=== PATIENT | female | born 1935 | race Caucasian/White ===

== ENCOUNTER → 2016-12-10 | Outpatient (CLI) | payer MEDICARE ==
[~2016-12-10] MED LIST: ALEN70TA5 PO; ASPI-650 PO; CALC1TAB PO; CITA10TA8 PO; DOCU-30 PO; GABA-826 PO; HYDR-3138 PO; MELO-184 PO; MULT-516 PO; NAPR500T3 PO; OMEP-110 PO; OXYB5TAB7 PO; SENN8.6T4 PO; TRAM50TA2 PO; VISION PO
[2016-12-10 14:25] LABS: ASPARTATE AMINO TRANSFERASE 22 U/L (15-37); BLOOD UREA NITROGEN 15 mg/dL (7-18)
== END | disposition home or self-care (01) ==
LOC: CLISVCS 12:43
PROVIDERS: ATTEND Orthopaedic Surgery
DX: T84.84XD Pain due to internal orthopedic prosthetic devices, implants and grafts, subsequent encounter (principal); X58.XXXD Exposure to other specified factors, subsequent encounter; Z96.641 Presence of right artificial hip joint
CPT/HCPCS: 36415; 80053; 81003; 85025; 87081; 87147

== ENCOUNTER 2016-12-11 08:03 | Day surgery (SDC) | payer MEDICARE ==
[~2016-12-11] VITALS: Ht 152.4 cm; Wt 55.3 kg
[2016-12-11] MEDS ORDERED: LACTATED RINGERS 1,000 ML IV SCH (08:37)
[2016-12-11 08:38] VITALS: BP 153/74
[2016-12-11] MEDS ORDERED: LIDOCAINE 1%, 2ML SQ PRN (09:00)
[2016-12-11] MEDS ORDERED: MIDAZOLAM 1 MG/ML, 2ML ONE (10:38)
[2016-12-11] MEDS ORDERED: PROPOFOL 10 MG/ML, 20ML ONE (10:46)
[2016-12-11] MEDS ORDERED: PROMETHAZINE 25 MG/ML, 1ML IM PRN (11:00)
[2016-12-11] MEDS ORDERED: HYDROcodone/APAP 7.5-325MG/15ML UDC PO PRN (11:30)
[2016-12-11] MEDS ORDERED: EPHEDRINE 50 MG/ML, 1ML IVPush PRN (11:30)
[2016-12-11] MEDS ORDERED: ONDANSETRON 2MG/ML, 2ML IVPush PRN (11:30)
[2016-12-11] MEDS ORDERED: hydrALAzine 20 MG/ML, 1ML IV PRN (11:30)
[2016-12-11] MEDS ORDERED: OXYcodone 5 MG/5 ML ORAL.SOL UDC PO PRN (11:30)
[2016-12-11] MEDS ORDERED: LABETALOL 5MG/ML, 20ML IV PRN (11:30)
[2016-12-11] MEDS ORDERED: FENTANYL PF 100 MCG/2ML IV PRN (11:30)
[2016-12-11] MEDS ORDERED: PROMETHAZINE 25 MG/ML, 1ML IV PRN (11:30)
[2016-12-11] MEDS ORDERED: METOPROLOL 1 MG/ML, 5ML IV PRN (11:30)
[2016-12-11] MEDS ORDERED: ALBUTEROL SULFATE 2.5 MG/3 ML NPPB PRN (11:30)
[2016-12-11] MEDS ORDERED: ACETAMINOPHEN 325 MG TABLET PO PRN (11:30)
[2016-12-11 11:33] LABS: CELLS COUNTED 11; DILUTION 20; WBC SQUARES COUNTED 9
== END 2016-12-11 12:55 | disposition home or self-care (01) ==
LOC: OUT 08:03
PROVIDERS: ATTEND Orthopaedic Surgery
DX: T84.498A Other mechanical complication of other internal orthopedic devices, implants and grafts, initial encounter (principal); Y83.1 Surgical operation with implant of artificial internal device as the cause of abnormal reaction of the patient, or of later complication, without mention of misadventure at the time of the procedure; K21.9 Gastro-esophageal reflux disease without esophagitis; M19.90 Unspecified osteoarthritis, unspecified site; Z88.6 Allergy status to analgesic agent; G89.29 Other chronic pain; M54.9 Dorsalgia, unspecified; Z96.641 Presence of right artificial hip joint
CPT/HCPCS: 20610; 73501; 89051; 93005; J2250; J2704; J7120; 76000; 77002

== ENCOUNTER 2016-12-14 09:03 | Inpatient (IN) | payer MEDICARE ==
[2016-12-10 13:49] VITALS: BP 128/86
[~2016-12-14] VITALS: Ht 152.4 cm; Wt 65.2 kg
[~2016-12-14 09:03] MED LIST changes: +BUPIVACAINE/PF 0.25% ONE; +BUPIVACAINE/PF 0.5% ONE; +methylPREDNISolone *ACETATE* 40 MG/ML ONE
[2016-12-14] MEDS ORDERED: TRANEXAMIC ACID 100 MG/ML, 10ML ONE (11:00)
[2016-12-14] MEDS ORDERED: KETOROLAC 60 MG/2 ML ONE (11:00)
[2016-12-14] MEDS ORDERED: VANCOMYCIN 1,000 MG ONE ×2 (11:00→11:46)
[2016-12-14] MEDS ORDERED: ROPIvacaine/PF 0.2%, 20 ML ONE (11:00)
[2016-12-14] MEDS ORDERED: EPINEPHRINE 1 MG/ML, 1ML ONE (11:00)
[2016-12-14] MEDS ORDERED: SODIUM CHLORIDE 0.9% 50 ML ONE (11:01)
[2016-12-14] MEDS ORDERED: LACTATED RINGERS 1,000 ML IV SCH (11:02)
[2016-12-14] MEDS ORDERED: FENTANYL PF 250 MCG/5ML ONE (11:19)
[2016-12-14] MEDS ORDERED: DEXAMETHASONE 4 MG/ML, 1ML ONE (11:49)
[2016-12-14] MEDS ORDERED: CEFAZOLIN 1,000 MG ONE ×2 (11:49)
[2016-12-14] MEDS ORDERED: PROPOFOL 10 MG/ML, 20ML ONE (11:49)
[2016-12-14] MEDS ORDERED: ONDANSETRON 2MG/ML, 2ML ONE ×2 (11:49→16:29)
[2016-12-14] MEDS ORDERED: ROCURONIUM 10 MG/ML ONE (11:49)
[2016-12-14] MEDS ORDERED: PHENYLEPHRINE 10 MG/ML ONE (11:49)
[2016-12-14] MEDS ORDERED: ALBUTEROL SULFATE 2.5 MG/3 ML NPPB PRN (13:00)
[2016-12-14] MEDS ORDERED: hydrALAzine 20 MG/ML, 1ML IV PRN (13:00)
[2016-12-14] MEDS ORDERED: METOPROLOL 1 MG/ML, 5ML IV PRN (13:00)
[2016-12-14] MEDS ORDERED: HALOPERIDOL 5 MG/ML IV ONE (13:00)
[2016-12-14] MEDS ORDERED: ACETAMINOPHEN 325 MG TABLET PO PRN (13:00)
[2016-12-14] MEDS ORDERED: OXYcodone 5 MG/5 ML ORAL.SOL UDC PO PRN (13:00)
[2016-12-14] MEDS ORDERED: KETAMINE 10 MG/ML, 20ML ONE (14:32)
[2016-12-14] MEDS ORDERED: FENTANYL PF 100 MCG/2ML ONE (16:13)
[2016-12-14] MEDS ORDERED: OXYcodone 5 MG/5 ML ORAL.SOL UDC ONE (16:13)
[2016-12-14] MEDS ORDERED: HYDROmorphone 2 MG/ML, 1ML ONE (16:13)
[2016-12-14] MEDS ORDERED: ACETAMINOPHEN 650 MG/20.3 ML UDC ONE (16:13)
[2016-12-14] MEDS: FENTANYL PF 100 MCG/2ML IV PRN ×4 (16:20→17:19)
[2016-12-14] MEDS: HYDROmorphone 1 MG/ML, 1ML IV PRN ×4 (16:26→17:30)
[2016-12-14] MEDS ORDERED: OXYcodone IR 5MG TABLET PO PRN (16:30)
[2016-12-14] MEDS ORDERED: ONDANSETRON 4 MG TABLET PO PRN (16:30)
[2016-12-14] MEDS: HYDROcodone/APAP 10/325 MG TABLET PO SCH ×2 (16:30→20:41)
[2016-12-14] MEDS ORDERED: HYDROmorphone 1 MG/ML, 1ML IV PRN (16:30)
[2016-12-14] MEDS ORDERED: ALUMINUM/MAG/SIMETHICONE 30 ML UDC PO PRN (16:30)
[2016-12-14] MEDS ORDERED: SENNA/DOCUSATE TABLET PO PRN (16:30)
[2016-12-14] MEDS ORDERED: DIPHENHYDRAMINE 25 MG CAPSULE PO PRN (16:30)
[2016-12-14] MEDS ORDERED: TRANEXAMIC ACID 1,000 MG in SODIUM CHLORIDE 0.9% 100 ML IVPB ONE (16:30)
[2016-12-14] MEDS ORDERED: MAGNESIUM HYDROXIDE 8%, 30ML UDC PO PRN (16:30)
[2016-12-14] MEDS ORDERED: PROMETHAZINE 12.5 MG SUPP PR PRN (16:30)
[2016-12-14] MEDS ORDERED: DIAZEPAM 5 MG TABLET PO PRN (16:30)
[2016-12-14] MEDS ORDERED: ACETAMINOPHEN 650 MG/20.3 ML UDC PO PRN (16:30)
[2016-12-14] MEDS ORDERED: BISACODYL 10 MG SUPP PR PRN (16:30)
[2016-12-14] MEDS ORDERED: PROMETHAZINE 25 MG/ML, 1ML IM PRN (16:30)
[2016-12-14 17:20] LABS: BLOOD UREA NITROGEN 12 mg/dL (7-18)
[2016-12-14] MEDS ORDERED: [UNRECOGNIZED DRUG - REMARK] MC SCH (18:00)
[2016-12-14] MEDS: CEFAZOLIN PMX 2GM/50ML 50 ML IVPB SCH (20:26)
[2016-12-14] MEDS: D5%-0.45% NACL 1,000 ML IV SCH (20:26)
[2016-12-14] MEDS: ONDANSETRON 2MG/ML, 2ML IV PRN (20:27)
[2016-12-14] MEDS: DOCUSATE 100 MG CAPSULE PO SCH (20:41)
[2016-12-14] MEDS: OMEPRAZOLE 20 MG CAPSULE.DR PO SCH (20:41)
[2016-12-14 21:21] VITALS: BP 118/52
[2016-12-15 00:03] VITALS: BP 127/50
[2016-12-15] MEDS: HYDROcodone/APAP 10/325 MG TABLET PO SCH ×4 (00:42→14:00)
[2016-12-15] MEDS: CEFAZOLIN PMX 2GM/50ML 50 ML IVPB SCH (04:01)
[2016-12-15 04:14] VITALS: BP 100/41
[2016-12-15 04:39] VITALS: BP 111/52
[2016-12-15] MEDS: D5%-0.45% NACL 1,000 ML IV SCH ×3 (04:51→20:00)
[2016-12-15] MEDS ORDERED: DEXAMETHASONE 4 MG/ML, 1ML IVPush SCH (06:00)
[2016-12-15 06:14] LABS: BLOOD UREA NITROGEN 12 mg/dL (7-18)
[2016-12-15 07:58] VITALS: BP 99/48
[2016-12-15] MEDS ORDERED: MAGNESIUM SULFATE PMX 4GM/100M 100 ML IV ONE (09:30)
[2016-12-15] MEDS: OMEPRAZOLE 20 MG CAPSULE.DR PO SCH (09:43)
[2016-12-15] MEDS: DOCUSATE 100 MG CAPSULE PO SCH ×2 (09:43→22:45)
[2016-12-15] MEDS: RIVAROXABAN 10 MG TABLET PO SCH (09:44)
[2016-12-15] MEDS: MULTIVITAMINS/MINERALS TABLET PO SCH (09:44)
[2016-12-15] MEDS: CITALOPRAM 10 MG TABLET PO SCH (09:44)
[2016-12-15] MEDS ORDERED: VANCOMYCIN PMX 1GM/200ML 200 ML IVPB ONE (11:30)
[2016-12-15 14:22] VITALS: BP 119/71
[2016-12-15] MEDS: KETOROLAC 30 MG/1 ML IV SCH (16:11)
[2016-12-15] MEDS: HYDROcodone/APAP 10/325 MG TABLET PO PRN ×2 (18:09→22:47)
[2016-12-15 19:48] VITALS: BP 91/49
[2016-12-15] MEDS: ZOLPIDEM 5MG TABLET PO PRN (23:07)
[2016-12-16] VITALS (12 sets, daily range): BP systolic 97–128; BP diastolic 40–74
[2016-12-16] MEDS: KETOROLAC 30 MG/1 ML IV SCH ×2 (01:21→09:34)
[2016-12-16] MEDS: D5%-0.45% NACL 1,000 ML IV SCH ×3 (04:00→20:00)
[2016-12-16] MEDS: HYDROcodone/APAP 10/325 MG TABLET PO PRN ×2 (05:42→14:38)
[2016-12-16 05:46] LABS: BLOOD UREA NITROGEN 11 mg/dL (7-18)
[2016-12-16 05:49] LABS: ASPARTATE AMINO TRANSFERASE 36 U/L (15-37)
[2016-12-16] MEDS: RIVAROXABAN 10 MG TABLET PO SCH (09:00)
[2016-12-16] MEDS: MULTIVITAMINS/MINERALS TABLET PO SCH (09:34)
[2016-12-16] MEDS: OMEPRAZOLE 20 MG CAPSULE.DR PO SCH (09:37)
[2016-12-16] MEDS: DOCUSATE 100 MG CAPSULE PO SCH ×2 (09:38→22:54)
[2016-12-16] MEDS: CITALOPRAM 10 MG TABLET PO SCH (09:38)
[2016-12-16] MEDS: ZOLPIDEM 5MG TABLET PO PRN (23:14)
[2016-12-17 01:23] VITALS: BP 121/57
[2016-12-17] MEDS: D5%-0.45% NACL 1,000 ML IV SCH ×2 (03:59→12:00)
[2016-12-17] MEDS: HYDROcodone/APAP 10/325 MG TABLET PO PRN ×2 (05:25→21:19)
[2016-12-17 06:41] LABS: ASPARTATE AMINO TRANSFERASE 30 U/L (15-37); BLOOD UREA NITROGEN 12 mg/dL (7-18)
[2016-12-17] MEDS: CITALOPRAM 10 MG TABLET PO SCH (08:25)
[2016-12-17] MEDS: DOCUSATE 100 MG CAPSULE PO SCH ×2 (08:25→21:19)
[2016-12-17] MEDS: MULTIVITAMINS/MINERALS TABLET PO SCH (08:25)
[2016-12-17] MEDS: OMEPRAZOLE 20 MG CAPSULE.DR PO SCH (08:25)
[2016-12-17 08:37] VITALS: BP 115/64
[2016-12-17 12:46] VITALS: BP 109/66
[2016-12-17] MEDS: ONDANSETRON 2MG/ML, 2ML IV PRN (17:51)
[2016-12-17 19:02] VITALS: BP 109/59
[2016-12-17] MEDS: ZOLPIDEM 5MG TABLET PO PRN (23:00)
[2016-12-18 02:13] VITALS: BP 103/62
[2016-12-18 08:03] VITALS: BP 107/44
[2016-12-18] MEDS: DOCUSATE 100 MG CAPSULE PO SCH ×2 (08:20→21:54)
[2016-12-18] MEDS: MULTIVITAMINS/MINERALS TABLET PO SCH (08:20)
[2016-12-18] MEDS: CITALOPRAM 10 MG TABLET PO SCH (08:21)
[2016-12-18] MEDS: HYDROcodone/APAP 10/325 MG TABLET PO PRN ×2 (08:21→23:20)
[2016-12-18] MEDS: OMEPRAZOLE 20 MG CAPSULE.DR PO SCH (08:21)
[2016-12-18] MEDS: HEPARIN 5,000 UNITS/ML, 1ML SQ SCH ×2 (13:29→21:54)
[2016-12-18 14:01] VITALS: BP 122/49
[2016-12-18 19:08] VITALS: BP 137/59
[2016-12-18] MEDS: ZOLPIDEM 5MG TABLET PO PRN (23:20)
[2016-12-19] MEDS: HEPARIN 5,000 UNITS/ML, 1ML SQ SCH ×2 (05:26→13:39)
[2016-12-19 05:35] VITALS: BP 119/64
[2016-12-19 08:02] VITALS: BP 134/48
[2016-12-19] MEDS: CITALOPRAM 10 MG TABLET PO SCH (09:14)
[2016-12-19] MEDS: MULTIVITAMINS/MINERALS TABLET PO SCH (09:14)
[2016-12-19] MEDS: DOCUSATE 100 MG CAPSULE PO SCH (09:14)
[2016-12-19] MEDS: OMEPRAZOLE 20 MG CAPSULE.DR PO SCH (09:14)
[2016-12-19 15:05] VITALS: BP 114/53
== END 2016-12-19 18:05 | DRG 466 ==
LOC: ORIP 09:03 → 4NOR 17:42
PROVIDERS: ADMIT Orthopaedic Surgery; ATTEND Orthopaedic Surgery
PROC: 0LQJ0ZZ Repair Right Hip Tendon, Open Approach (ICD-10-PCS; 2016-12-14)
PROC: 0SP909Z Removal of Liner from Right Hip Joint, Open Approach (ICD-10-PCS; 2016-12-14)
PROC: 0SU909Z Supplement Right Hip Joint with Liner, Open Approach (ICD-10-PCS; 2016-12-14)
PROC: 0SP90JZ Removal of Synthetic Substitute from Right Hip Joint, Open Approach (ICD-10-PCS; 2016-12-14)
PROC: 0SR904A Replacement of Right Hip Joint with Ceramic on Polyethylene Synthetic Substitute, Uncemented, Open Approach (ICD-10-PCS; principal; 2016-12-14 12:30)
PROC: 30233N1 Transfusion of Nonautologous Red Blood Cells into Peripheral Vein, Percutaneous Approach (ICD-10-PCS; 2016-12-16)
DX: T84.030A Mechanical loosening of internal right hip prosthetic joint, initial encounter (principal); E43 Unspecified severe protein-calorie malnutrition; D62 Acute posthemorrhagic anemia; M19.90 Unspecified osteoarthritis, unspecified site; Z96.641 Presence of right artificial hip joint; G62.9 Polyneuropathy, unspecified; K59.00 Constipation, unspecified; Y83.8 Other surgical procedures as the cause of abnormal reaction of the patient, or of later complication, without mention of misadventure at the time of the procedure; G89.29 Other chronic pain; Z82.5 Family history of asthma and other chronic lower respiratory diseases; Z82.49 Family history of ischemic heart disease and other diseases of the circulatory system; Z79.82 Long term (current) use of aspirin; Z90.89 Acquired absence of other organs; Z88.8 Allergy status to other drugs, medicaments and biological substances; Y92.89 Other specified places as the place of occurrence of the external cause
CPT/HCPCS: 36415; 71010; 72170; 80048; 80053; 82040; 83735; 85014; 85018; 85025; 86850; 86900; 86923; 87070; 87075; 87205; C1713; J0171; J0690; J1100; J1170; J1644; J1885; J2405; J2704; J2795; J3010; J3370; J3490; C1776; J1030; J2370; J3475; J7120; P9016